=== PATIENT | male | born 1975 | race African-American/Black ===

== ENCOUNTER 2023-04-20 07:43 | Emergency (ER) | payer MEDICAID ==
[~2023-04-20] VITALS: Ht 177.8 cm; Wt 80.0 kg
[2023-04-20 07:46] VITALS: BP 105/69; PULSE 110; RESP 18; TEMP 98.8; O2SAT 99
[2023-04-20 11:06] LABS: BASOPHILS % 0.6 % (0.0-2.0); DIFFERENTIAL COMMENT 0; EOSINOPHILS % 0.3 % (0.0-5.0); HEMATOCRIT. 41.3 % (42.0-52.0); HEMOGLOBIN. 13.6 g/dL (14.0-18.0); LYMPHOCYTES % 7.4 % (20.0-50.0); MEAN CORPUSCULAR HEMOGLOBIN 30.7 pg (28.0-32.0); MEAN CORPUSCULAR VOLUME 93.2 fL (80.0-94.0); MEAN PLATELET VOLUME 9.8 fl (7.4-10.4); MONOCYTES % 11.5 % (2.0-8.0); NEUTROPHILS % 80.2 % (40.0-76.0); PLATELET 164 x1000/uL (130-400); RED BLOOD CELL COUNT 4.43 mill/uL (4.7-6.1); RED CELL DISTRIBUTION WIDTH 13.8 % (11.6-14.6); WHITE BLOOD COUNT 10.7 x1000/uL (4.5-11.0)
[2023-04-20 11:41] LABS: CHLORIDE 100 mEq/L (98-107); INDEX HEMOLYSI 1 (1-3); INDEX ICTERIC 1 (1-4); INDEX LIPEMIC 1 (1-3); POTASSIUM 3.4 mEq/L (3.5-5.1); SODIUM 133 mEq/L (136-145)
[2023-04-20 12:09] LABS: ALBUMIN 3.9 g/dL (3.4-5.0); CARBON DIOXIDE 23 mEq/L (21-32); ETHANOL BLOOD < 10 mg/dL (<10); GLUCOSE 74 mg/dL (70-105); UREA NITROGEN BLOOD 10 mg/dL (7-21)
[2023-04-20 12:47] LABS: ALANINE AMINOTRANSFERASE 67 IU/L (13-61); BILIRUBIN TOTAL 1.7 mg/dL (0.1-1.0); CREATININE 0.8 mg/dL (0.6-1.3); PROTEIN TOTAL 9.3 g/dL (6.0-8.3)
[2023-04-20 13:08] LABS: ACETAMINOPHEN <2 ug/mL ug/mL (10-30); ASPARTATE AMINOTRANSFERASE 123 IU/L (15-37)
== END 2023-04-20 12:07 | disposition home or self-care (01) ==
LOC: ER 08:39
DX: R44.3 Hallucinations, unspecified (principal); Z86.59 Personal history of other mental and behavioral disorders
CPT/HCPCS: 36415; 80053; 80307; 80320; 80329; 85025; 99284; G0480

== ENCOUNTER 2023-09-17 20:08 | Emergency (ER) | payer MEDICAID ==
[~2023-09-17] VITALS: Ht 175.3 cm; Wt 73.0 kg
[2023-09-17 20:16] VITALS: RESP 18; O2SAT 98
[2023-09-17] MEDS: ACETAMINOPHEN 500MG TABLET PO ONE (23:38)
[2023-09-18] MEDS ORDERED: IBUP-2029 MT (02:38)
[2023-09-18 03:11] VITALS: BP 127/88; PULSE 87; TEMP 97.5
== END 2023-09-18 03:15 | disposition home or self-care (01) ==
LOC: ER 20:08
DX: S30.0XXA Contusion of lower back and pelvis, initial encounter (principal); S09.90XA Unspecified injury of head, initial encounter; F31.9 Bipolar disorder, unspecified; E11.9 Type 2 diabetes mellitus without complications; I10 Essential (primary) hypertension; F20.9 Schizophrenia, unspecified; W18.39XA Other fall on same level, initial encounter; Y93.89 Activity, other specified; Y92.89 Other specified places as the place of occurrence of the external cause; Y99.8 Other external cause status
CPT/HCPCS: 71045; 72128; 72131; 99284